=== PATIENT | female | born 1985 | race Caucasian/White ===

== ENCOUNTER 2022-04-22 17:43 | Emergency (ER) | payer BC, SELFPAY ==
--- NOTE | 2022-04-22 17:30 | RT.EKG_ITS ---
APPROVED REPORT Exam: Resting ECG Reason for Exam: chest pain Patient Location: E HR:87 bpm ECG Measurements Heart Rate 87 AXIS MS 144 P 70 QRSd 97 QRS 17 QT 387 T -1 QTc 451 Conclusion Sinus rhythm PVC's No st elevation
[2022-04-22 17:47] VITALS: BP 138/91; PULSE 83; RESP 20; TEMP 36.9; O2SAT 100
--- NOTE | 2022-04-22 18:00 | DI.RAD_ITS ---
Exam(s) XR CHEST 2V PA LATERAL EXAM: XR CHEST 2V PA LATERAL CLINICAL HISTORY: Palpitations TECHNIQUE: 2D digital imaging was performed. COMPARISON: No exams were available for comparison FINDINGS: MEDIASTINUM: Normal. HEART: Normal. PULMONARY VASCULATURE: Normal. LUNGS: Clear. PLEURAL SPACE: No pleural effusion or pneumothorax. BONE:Unremarkable for age. IMPRESSION: No acute abnormality. DATA REPOSITORY: RADIATION DOSE DELIVERED:
--- NOTE | 2022-04-22 18:15 | W.ED.GENAD ---
Discharge Plan Disposition Patient Disposition: HOME Condition: Improving Discharge Details Clinical Impression: Hypokalemia, Palpitations Primary Care Provider: Chaz Nath ED Provider: Saul Isaac Home Meds and New Rx's Prescriptions: Continued cetirizine [Zyrtec] 10 mg Tablet 10 mg PO BID levonorgestrel-ethinyl estrad [Vienva] 0.1-20 mg-mcg Tablet 1 tab PO DAILY omeprazole 20 mg Capsule,Delayed Release(Dr/Ec) 20 mg PO DAILY Discharge Instructions Instructions: Heart Palpitations (ED), Hypokalemia (ED) Additional Instructions: Please return on Sunday to respiratory therapy for placement of a Holter monitor. The respiratory therapy office is at the phone #[phone]. Small, frequent sips of fluids to maintain hydration. Increase potassium containing foods in your diet such as strawberries, bananas, tree nuts like almonds or cashews, or dark leafy greens. Return to the ER for any acute concerns. Discharge Orders Other Ambulatory Orders: Holter Monitor (Routine) Timeframe: 1 Week Facility: [facility] - Location: Respiratory Therapy Ordered By: Saul Isaac Discharge Data Discharge Date/Time-TO BE ENTERED AT DEPARTURE: 04/22/22 19:57 Medical Decision Making 36-year-old female presents from home. She states she had some increased stress and GERD which is common for her, but now has hours of intermittent episodes of palpitations. She feels 1-2 beat extra beats. She has not had any significant chest discomfort, shortness of breath, nor leg pain or swelling. The patient is normotensive and well-appearing. Single PVCs are auscultated during the exam and confirmed on the monitor. Patient IV access established, screening labs obtained. Chest x-ray with no acute cardiopulmonary abnormality. Labs reveal a slightly low potassium of 3.3. Noted creatinine 1.1. TSH, troponin unremarkable. CBC is within normal limits. D-dimer negative at 162. Potassium was supplemented in the emergency department. Patient improved. Consistent with PVCs. We will place her on a Holter monitor for follow-up. She is stable and appropriate for discharge to home at this time. Lab Data Lab results reviewed: Yes I reviewed the patient's lab results. Labs: Laboratory Results - last 24 hr 04/22/22 04/22/22 18:30 18:30 WBC 7.16 RBC 4.90 Hgb 14.4 Hct 40.6 MCV 83 MCH 29.4 MCHC 35.5 RDW 14.5 Plt Count 174 MPV Immature Gran % 0.1 Neutrophils % 52.6 Lymphocytes % 37.4 Monocytes % 8.1 Eosinophils % 1.4 Basophils % 0.4 Nucleated RBC % 0.0 Absolute Neutrophils 3.76 Absolute Lymphocytes 2.68 Absolute Monocytes 0.58 Absolute Eosinophils 0.10 Absolute Basophils 0.03 Sodium 140 Potassium 3.3 L Chloride 104 Carbon Dioxide 24.8 Anion Gap 11.2 H BUN 14 Creatinine 1.1 H Est GFR (CKD-EPI 2020) 66.37 Glucose 128 H Calcium 8.8 Magnesium 1.8 Total Bilirubin 0.4 AST 14 L ALT 17 Alkaline Phosphatase 62 Troponin I < 50 Total Protein 8.0 Albumin 3.8 TSH 1.27 HPI General Mode of arrival: ambulatory. Date/Time Provider Initiated Documentation: 04/22/22 17:44. Limitations to Documentation: no limitations. Information obtained by: patient. History of Present Illness 36 year old F presents to the emergency department with the chief complaint of Palpitations, described as mild and similar to prior episodes, and is localized to the chest. Patient reports no radiation. Patient started experiencing this hour(s) and it has been intermittent. No relieving factors improve symptom(s), No exacerbating factors reported . Patient notes denies cough, diaphoresis, fever/chills, headaches, loss of appetite, shortness of breath, syncope and weakness. Patient did receive the following treatments prior to arrival, none Related Data Home Medications Medication Instructions Recorded Confirmed cetirizine 10 mg tablet (Zyrtec) 10 mg PO BID 04/22/22 04/22/22 levonorgestrel-ethinyl estradiol 1 tab PO DAILY 04/22/22 04/22/22 0.1 mg-20 mcg tablet (Vienva) omeprazole 20 mg capsule,delayed 20 mg PO DAILY 04/22/22 04/22/22 release Allergies Allergy/AdvReac Type Severity Reaction Status Date / Time Penicillins AdvReac Intermediate Hives Unverified 04/22/22 17:51 General Stated Complaint: Chest Pain BENNETT: 2 Review of Systems Narrative: Feels epigastric burning, no chest pressure. Denies diaphoresis or nausea. No shortness of breath. No leg pain or swelling. 7 systems were reviewed and otherwise negative PFSH All Active Problems (Updated 04/22/22 @ 19:45 by Saul Isaac MD) Hypokalemia (Acute) Palpitations (Acute) Social History Smoking/Tobacco Use Status: Never Smoking risk assessment performed?: Yes Alcohol Intake: never Drug use: Occasionally Substance use type: marijuana Do you feel safe at home: Yes Do you feel safe in your relationship?: Yes Exam Narrative Exam Narrative: GEN: awake, alert, oriented 3. Pleasant, well groomed, interactive. HEAD: Normocephalic, atraumatic ENT: Mucous membranes moist, oropharynx unremarkable, External ear exam unremarkable EYES: PERRL, EOMI NECK: Full ROM, no AMELIA, no menigismus CHEST/RESP: Nontender, clear to auscultation bilateral, no wheeze/rhonchi/rales CARDIOVASCULAR: RRR, no murmur, rub gustavo. 2+ Rad pulse bilateral ABDOMEN: Soft, nontender, no mass. +Bowel sounds EXT: Full ROM, no edema, no rash Neuro: Grossly normal neurologic exam, conversant, interactive. Psych: Speech fluent, thoughts congruent, affect normal Course Vital Signs Vital signs: Vital Signs Temperature 36.9 C 04/22/22 17:47 Pulse 83 04/22/22 17:47 Respiratory Rate 20 04/22/22 17:47 Blood Pressure 138/91 H 04/22/22 17:47 Pulse Oximetry 100 04/22/22 17:47 Temperature 36.9 C 04/22/22 17:47 Temperature Source Temporal Artery Scan 04/22/22 17:47 Pulse 83 04/22/22 17:47 Respiratory Rate 20 04/22/22 17:47 Respiratory Effort Non-Labored 04/22/22 17:59 Respiratory Depth Normal 04/22/22 17:59 Respiratory Pattern Normal 04/22/22 17:59 Blood Pressure 138/91 H 04/22/22 17:47 Blood Pressure Position Sitting 04/22/22 17:47 Pulse Oximetry 100 04/22/22 17:47 Oxygen Delivery Method Room Air 04/22/22 17:47 Oxygen Flow Rate 0 04/22/22 17:47 Pain Level 0 04/22/22 17:47
[2022-04-22] MEDS: Normal Saline 1,000 ML 1000 ML IV (18:42)
[2022-04-22 18:55] LABS: Abs Immature Grans 0.01 10^3/uL (0.0-0.06); Absolute Basophil Count 0.03 10^3/uL (0.0-0.2); Absolute Lymphocyte Count 2.68 10^3/uL (1.2-3.4); Absolute Monocyte Count 0.58 10^3/uL (0.1-0.8); Absolute Neutrophil Count 3.76 10^3/uL (1.2-6.7); Basophils % 0.4; Eosinophils % 1.4; HCT 40.6 % (36.0-46.0); HGB 14.4 g/dL (11.2-15.7); Immature Grans % 0.1; Lymphocytes % 37.4; MCH 29.4 pg (27.0-33.0); MCHC 35.5 % (32.0-36.0); MCV 83 fL (80-95); Monocytes % 8.1; Neutrophils % 52.6; Platelet Count 174 10^3/uL (130-400); RDW 14.5 % (11.7-14.6); RDW-SD 43.8 fL; WBC 7.16 10^3/uL (4.4-10.8)
--- NOTE | 2022-04-22 18:55 | DI.VRAD_ITS ---
PROCEDURE INFORMATION: Exam: XR Chest Exam date and time: 04/22/2022 6:45 PM Age: 36 years old Clinical indication: Other: Palpatations TECHNIQUE: Imaging protocol: Radiologic exam of the chest. Views: 2 views. COMPARISON: No relevant prior studies available. FINDINGS: Tubes, catheters and devices: Monitoring wires noted. Lungs: Unremarkable. No consolidation. Lungs are mildly hyperaerated. Pulmonary vessels are not congested. Pleural spaces: Unremarkable. No pleural effusion. No pneumothorax. Heart/Mediastinum: Unremarkable. No cardiomegaly. Bones/joints: Unremarkable. IMPRESSION: No acute cardiopulmonary abnormality. Dictated and Authenticated by: José Beauchamp MD. Ordering:AVERY Hughes MD
[2022-04-22 19:07] LABS: ALT 17 U/L (14-59); AST 14 U/L (15-37); Albumin 3.8 g/dL (3.4-5.0); Alkaline Phosphatase 62 U/L (46-116); Anion Gap 11.2 mmol/L (3-11); BUN 14 mg/dL (7-18); Bilirubin, Total 0.4 mg/dL (0.2-1.0); CO2 24.8 mmol/L (21.0-32.0); CREATININE 1.1 mg/dL (0.55-1.02); Calcium 8.8 mg/dL (8.5-10.1); Chloride 104 mmol/L (98-107); Estimated GFR 66.37 (mL/min/1.73m2); Glucose 128 mg/dL (74-106); Magnesium 1.8 mg/dL (1.8-2.4); Potassium 3.3 mmol/L (3.5-5.1); Sodium 140 mmol/L (136-145); TSH 1.27 uIU/mL (0.36-3.74); Troponin I < 50 ng/L (<or=60)
[2022-04-22 19:35] LABS: D-Dimer 160 ng/mlFEU (<500)
[2022-04-22] MEDS: Potassium Chloride 20 MEQ TABCR PO (19:36)
[2022-04-22 19:55] VITALS: BP 126/79; PULSE 68; RESP 16; O2SAT 98
== END 2022-04-22 19:57 | disposition home or self-care (01) ==
PROVIDERS: Emergency Provider Emergency Medicine; PCP Family Medicine
DX: R00.2 Palpitations (principal); E87.6 Hypokalemia; F43.9 Reaction to severe stress, unspecified; K21.9 Gastro-esophageal reflux disease without esophagitis; I49.3 Ventricular premature depolarization
CPT/HCPCS: 36415; 80053; 93005; 96360; 99284; 71046; 83735; 84443; 84484; 85025; 85379; 93010; 99285

== ENCOUNTER 2022-05-08 03:38 | Outpatient (RCR) | payer BC, SELFPAY ==
--- NOTE | 2022-05-08 11:30 | HOLTER_ITS ---
APPROVED REPORT Conclusion This is a 48-hour Holter monitor Predominant rhythm was sinus with an average heart rate of 69. Minimum was 45, maximum 163 A total of 1 premature ventricular contractions and 3 premature atrial contractions were recorded There is no atrial fibrillation, no high-grade AV block, no supraventricular tachycardia, no pauses g reater than 3 seconds There were no apparent patient symptoms
== END 2022-05-19 23:59 | disposition home or self-care (01) ==
LOC: RT 03:38
PROVIDERS: PCP Family Medicine; Visit Provider Nurse Practitioner Family
DX: R00.2 Palpitations (principal); I49.1 Atrial premature depolarization
CPT/HCPCS: 93225; 93226

== ENCOUNTER → 2022-06-12 02:03 | Outpatient (CLI) | payer BC, SELFPAY ==
--- NOTE | 2022-06-12 12:30 | DI.RAD_ITS ---
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 TECHNIQUE: 2D digital imaging was performed. Four views. COMPARISON: No exams were available for comparison FINDINGS: BONES: No acute fracture is present. No bony destructive lesion is seen. JOINTS: The knee is normally aligned. No joint effusion is seen. SOFT TISSUE: Normal. IMPRESSION: Unremarkable radiographs of the right knee. DATA REPOSITORY: RADIATION DOSE DELIVERED:
== END ==
PROVIDERS: PCP Family Medicine; Visit Provider Nurse Practitioner Family
DX: M25.561 Pain in right knee (principal); M22.2X1 Patellofemoral disorders, right knee
CPT/HCPCS: 73564

== ENCOUNTER 2025-06-19 20:17 | Emergency (ER) | payer OTHER, SELFPAY ==
[2025-06-19] VITALS (16 sets, daily range): BP systolic 131–157; BP diastolic 91–108; PULSE 46–84; RESP 13–24; TEMP 36.6; O2SAT 98–100
--- NOTE | 2025-06-19 20:15 | RT.EKG_ITS ---
APPROVED REPORT Exam: Resting ECG Reason for Exam: Heart Palpatations Patient Location: E HR:61 bpm ECG Measurements Heart Rate 61 AXIS NV 138 P 70 QRSd 96 QRS 18 QT 424 T 32 QTc 427 Conclusion Sinus rhythm...normal P axis, V-rate 60- 99 Probable left atrial enlargement...P >50mS, <-0.10mV V1 No STEMI
--- NOTE | 2025-06-19 20:46 | ED.GENADUL_ITS ---
Discharge Plan Disposition Patient Disposition: Home Condition: Stable Discharge Details Clinical Impression: Palpitations Primary Care Provider: Imtiaz Morgan ED Provider: Ignacio Garcia Home Meds and New Rx's Prescriptions: Continued cetirizine [Zyrtec] 10 mg Tablet 10 mg PO BID levonorgestrel-ethinyl estrad [Vienva] 0.1-20 mg-mcg Tablet 1 tab PO DAILY omeprazole 20 mg Capsule,Delayed Release(Dr/Ec) 20 mg PO DAILY Discharge Instructions Instructions: Palpitations ED Referrals: Imtiaz Morgan MD [Primary Care Provider, Medicine] HPI General Date/Time Provider Initiated Documentation: 06/19/25 20:46 . HPI Narrative: 39 year-old female presents to ED today by POV/ambulating with a chief complaint of PAC's/palpitations, chest pressure with onset over the past 3 days, keeping her up at night. Quality described as palpitations, chest pressure, discomfort, no radiation to recent URI, fever, tick bites, abdominal pain, nausea/vomiting, dizziness, endorses shortness of breath. Severity is described as 4/10. Palliating factors include takes propranolol but is having breakthrough PACs, which has happened in the past with metoprolol. Provoking factors include nothing specific. Events leading up to the incident/Associated Symptoms: Patient followed by [facility] cardiology- wants to know if she should start an anti- arrhythmic. Patient not anticoagulated. Related Data Home Medications Medication Instructions Recorded Confirmed cetirizine 10 mg tablet (Zyrtec) 10 mg PO BID 04/22/22 04/22/22 levonorgestrel-ethinyl estradiol 1 tab PO DAILY 04/22/22 0.1 mg-20 mcg tablet (Vienva) omeprazole 20 mg capsule,delayed 20 mg PO DAILY 04/22/22 release Allergies Allergy/AdvReac Type Severity Reaction Status Date / Time Penicillins AdvReac Intermediate Hives Unverified 04/22/22 17:51 General Stated Complaint: Palpitatns BENNETT: 3 Review of Systems All systems reviewed & are unremarkable except as noted in HPI and below Exam Narrative Exam Narrative: GENERAL APPEARANCE: Well-nourished, non-toxic, awake and alert, atraumatic, no acute distress. SKIN: Warm, pink, dry, intact, without rashes/lesions/ulcerations. HEAD: Normocephalic, atraumatic, normal hair distribution for gender/age. EYES: Normal conjunctiva, no exudates on lids/lashes. ENT: Nares patent, no circumoral cyanosis, no facial swelling NECK: Supple, trachea midline, painless cervical ROM. LUNGS/CHEST: Lungs CTA bilaterally-no rhonchi/rales/wheezes diffusely, non- labored respirations, normal A/P diameter, symmetrical expansion, no chest wall deformity HEART (CV/PV): Regular rate and rhythm without murmur-no irregular rhythm to auscultation but did observe frequent PACs on monitor, no peripheral edema, no JVD. ABDOMEN: Soft, non-distended, no guarding. MSK: Normal ROM, no swelling/deformity to bilateral UEs or LEs, moving all extremities without weakness, no cyanosis, spine midline without tenderness, normal curvature. NEURO: Mental Status AAOx4 - alert to person, place, time, events No facial droop, no forehead involvement. Motor: No focal weakness Sensory: sensation intact to light touch globally. Gait normal: patient ambulated without ataxia into ED room. PSYCH: euthymic, cooperative, pleasant, appropriate speech Course Vital Signs Vital signs: Vital Signs Temperature 36.6 C 06/19/25 20:21 Pulse 56 L 06/19/25 20:21 Respiratory Rate 18 06/19/25 20:21 Blood Pressure 152/100 H 06/19/25 20:21 Pulse Oximetry 99 06/19/25 20:21 Temperature 36.6 C 06/19/25 20:21 Pulse 56 L 06/19/25 20:21 Respiratory Rate 18 06/19/25 20:21 Blood Pressure 152/100 H 06/19/25 20:21 Pulse Oximetry 99 06/19/25 20:21 Pain Level 5 06/19/25 20:21 Medical Decision Making This dictation utilizes [id number] dictation software and may contain unedited grammatical errors. 39 year-old female presents to ED today by POV/ambulating with a chief complaint of PAC's/palpitations, chest pressure with onset over the past 3 days, keeping her up at night. Quality described as palpitations, chest pressure, discomfort, no radiation to recent URI, fever, tick bites, abdominal pain, nausea/vomiting, dizziness, endorses shortness of breath. Severity is described as 4/10. Palliating factors include takes propranolol but is having breakthrough PACs, which has happened in the past with metoprolol. Provoking factors include nothing specific. Events leading up to the incident/Associated Symptoms: Patient followed by [facility] cardiology- wants to know if she should start an anti- arrhythmic. Patients' medical history: Palpitations. Family and social history: Non-smoker, gets regular exercise. Pertinent exam findings / vital signs include rate controlled sinus bradycardia with frequent PACs observed on monitor, no murmur to auscultation, lungs CTA, nontoxic and afebrile. Differential / pathologies of concern include PACs, palpitations, unlikely ACS. Diagnostic studies of: - CBC, CMP, troponin, BNP, lipase, TSH, magnesium, EKG, chest x-ray. - CBC shows no acute actionable abnormality - CMP is unremarkable without any electrolyte derangements - Magnesium within normal limits - Troponin negative with reliable onset - BNP within normal limits - Lipase negative - TSH within normal limits - EKG shows sinus rhythm with P waves followed by narrow complex QRS with normal axis, good R wave progression, no acute ST changes - X-ray chest within normal notes Interventions of: - Paged out [facility] cardiology to get their opinion on antiarrhythmic initiation at 2230. Patient signed out with Cardiology consult pending to Dr. Tena. ED Course; 39-year-old otherwise healthy female with history of palpitations with PACs failing metoprolol has been on propranolol for 1 year is having frequent breakthrough PACs and new hypertension tonight, she endorses some chest pressure and her cardiac workup is negative, paging out [facility] cardiology for question of choice of antiarrhythmic to initiate. Patient signed out to Dr. Tena at shift-change. Findings not consistent with ACS, thyroid disease, electrolyte abnormality, unstable arrhythmia. Disposition of palpitations. Patient verbalized understanding of the plan and return to ED criteria and engaged in shared decision making. Medical Records Medical records reviewed: Yes I reviewed the patient's medical records. Imaging Data Radiologic Study: Attestation: I personally reviewed and interpreted this imaging study as follows: Imaging: X-Ray Radiologist's impression: Exam: XR Chest Exam date and time: 06/19/2025 9:34 PM Age: 39 years old Clinical indication: Pain; Other: Chest pressure TECHNIQUE: Imaging protocol: Radiologic exam of the chest. Views: 2 views. COMPARISON: CR XR CHEST 2V PA LATERAL 04/22/2022 6:45 PM FINDINGS: Lungs: Unremarkable. No consolidation. Pleural spaces: Unremarkable. No pleural effusion. No pneumothorax. Heart/Mediastinum: Unremarkable. No cardiomegaly. Bones/joints: Unremarkable. IMPRESSION: No acute findings. Dictated and Authenticated by: Osiel Laura MD. Lab Data Lab results reviewed: Yes I reviewed the patient's lab results. Labs: Laboratory Tests Range/Units 06/19/25 20:51 WBC (4.4-10.8) 10^3/uL 7.98 RBC (3.93-5.22) 10^6/uL 5.10 Hgb (11.2-15.7) g/dL 15.3 Hct (36.0-46.0) % 45.0 MCV (80-95) fL 88 MCH (27.0-33.0) pg 30.0 MCHC (32.0-36.0) % 34.0 RDW (11.7-14.6) % 12.9 Plt Count (130-400) 10^3/uL 205 MPV (8.0-11.0) fL 13.0 H Immature Gran % % 0.3 Neutrophils % % 41.7 Lymphocytes % % 45.0 Monocytes % % 10.0 Eosinophils % % 2.5 Basophils % % 0.5 Nucleated RBC % (0.0-0.3) % 0.0 Absolute Neutrophils (1.2-6.7) 10^3/uL 3.33 Absolute Lymphocytes (1.2-3.4) 10^3/uL 3.59 H Absolute Monocytes (0.1-0.8) 10^3/uL 0.80 Absolute Eosinophils (0.0-0.7) 10^3/uL 0.20 Absolute Basophils (0.0-0.2) 10^3/uL 0.04 Sodium (136-145) mmol/L 140 Potassium (3.5-5.1) mmol/L 3.7 Chloride (98-107) mmol/L 102 Carbon Dioxide (21.0-32.0) mmol/L 27.1 Anion Gap (3-11) mmol/L 10.9 BUN (7-18) mg/dL 7 Creatinine (0.55-1.02) mg/dL 0.9 Est GFR (CKD-EPI 2020) (mL/min/1.73m2) 82.88 Glucose (74-106) mg/dL 99 Calcium (8.5-10.1) mg/dL 9.7 Magnesium (1.8-2.4) mg/dL 2.0 Total Bilirubin (0.2-1.0) mg/dL 0.4 AST (15-37) U/L 12 L ALT (14-59) U/L 20 Alkaline Phosphatase (46-116) U/L 62 Troponin I (<or=51) ng/L 4 NT-Pro-B Natriuret Pep (<300) pg/mL 76 Total Protein (6.4-8.2) g/dL 8.4 H Albumin (3.4-5.0) g/dL 4.1 Lipase (<78) U/L 45 TSH (0.36-3.74) uIU/mL 3.05 PFSH All Active Problems (Updated 06/19/25 @ 22:45 by PIPER Barbosa) Palpitations (Acute) Social History Smoking/Tobacco Use Status: Never Smoking risk assessment performed?: Yes Alcohol Intake: never Drug use: Occasionally Substance use type: marijuana Do you feel safe at home: Yes Do you feel safe in your relationship?: Yes
[2025-06-19 21:11] LABS: Abs Immature Grans 0.02 10^3/uL (0.0-0.06); HCT 45.0 % (36.0-46.0); HGB 15.3 g/dL (11.2-15.7); Immature Grans % 0.3 %; MCH 30.0 pg (27.0-33.0); MCHC 34.0 % (32.0-36.0); MCV 88 fL (80-95); MPV 13.0 fL (8.0-11.0); Platelet Count 205 10^3/uL (130-400); RBC 5.10 10^6/uL (3.93-5.22); RDW 12.9 % (11.7-14.6); RDW-SD 42.0 fL; WBC 7.98 10^3/uL (4.4-10.8)
[2025-06-19] MEDS: Aspirin 81 MG CHEW 324 MG CH (21:17)
--- NOTE | 2025-06-19 21:31 | DI.RAD_ITS ---
Exam(s) XR CHEST 2V PA LATERAL EXAM: XR CHEST 2V PA LATERAL CLINICAL HISTORY: chest pressure. TECHNIQUE: 2D digital imaging was performed. COMPARISON: CR,XR XR CHEST 2V PA LATERAL from 04/22/2022 FINDINGS: 2 views: Heart size is normal. The mediastinum is not widened. Lungs are clear. No infiltrates nor pleural effusions. IMPRESSION: No acute pulmonary findings. DATA REPOSITORY: RADIATION DOSE DELIVERED:
[2025-06-19 21:36] LABS: ALT 20 U/L (14-59); AST 12 U/L (15-37); Albumin 4.1 g/dL (3.4-5.0); Alkaline Phosphatase 62 U/L (46-116); Anion Gap 10.9 mmol/L (3-11); BUN 7 mg/dL (7-18); Bilirubin, Total 0.4 mg/dL (0.2-1.0); CO2 27.1 mmol/L (21.0-32.0); Calcium 9.7 mg/dL (8.5-10.1); Chloride 102 mmol/L (98-107); Glucose 99 mg/dL (74-106); Lipase 45 U/L (<78); Magnesium 2.0 mg/dL (1.8-2.4); Potassium 3.7 mmol/L (3.5-5.1); Sodium 140 mmol/L (136-145); Total Protein 8.4 g/dL (6.4-8.2); Troponin I 4 ng/L (<or=51)
--- NOTE | 2025-06-19 21:48 | DI.VRAD_ITS ---
PROCEDURE INFORMATION: Exam: XR Chest Exam date and time: 06/19/2025 9:34 PM Age: 39 years old Clinical indication: Pain; Other: Chest pressure TECHNIQUE: Imaging protocol: Radiologic exam of the chest. Views: 2 views. COMPARISON: CR XR CHEST 2V PA LATERAL 04/22/2022 6:45 PM FINDINGS: Lungs: Unremarkable. No consolidation. Pleural spaces: Unremarkable. No pleural effusion. No pneumothorax. Heart/Mediastinum: Unremarkable. No cardiomegaly. Bones/joints: Unremarkable. IMPRESSION: No acute findings. Dictated and Authenticated by: Osiel Laura MD. Orderin Radha Pierre MD
[2025-06-19 21:57] LABS: TSH (W/Ref FT4) 3.05 uIU/mL (0.36-3.74)
--- NOTE | 2025-06-20 00:19 | ED.PROG_ITS ---
Date of service: 06/20/25 Time of Service: 00:19 Medical Decision Making I discussed the case with Dr. Santoyo, from [facility] cardiology. The patient is scheduled for close follow-up with [facility] cardiology on the of this month. The patient is taking propranolol that her has she has noticed previously metoprolol was having a heart rate that was too low and was not being symptomatically treated effectively for the PACs. Cardiology recommended patient to be on 30 mg every 6 hours of oral diltiazem to see if this improves symptoms. They recommended a Zio patch at discharge, but we already unable to place this device tonight secondary to facility challenges. I reach back out to the [facility] cardiology, who recommended that the patient returns to the clinic if she has the appointment upcoming to Zio patch placement prior to the appointment. I discussed these recommendations with the patient. She was given oral diltiazem here in the emergency room as a bridge to follow-up with cardiology. Discharge Plan Disposition Patient Disposition: Home Condition: Stable Discharge Details Clinical Impression: Palpitations Primary Care Provider: Imtiaz Morgan ED Provider: Silviano Tena Home Meds and New Rx's Prescriptions: New diltiazem HCl [Cardizem] 30 mg tablet 30 mg PO QID Qty: 120 0RF Continued cetirizine [Zyrtec] 10 mg Tablet 10 mg PO BID levonorgestrel-ethinyl estrad [Vienva] 0.1-20 mg-mcg Tablet 1 tab PO DAILY omeprazole 20 mg Capsule,Delayed Release(Dr/Ec) 20 mg PO DAILY Discharge Instructions Instructions: Palpitations ED Additional Instructions: Take 1 diltiazem tablet every 6 hours, to help better control your premature atrial contractions. This medication is meant to be a replacement for the oral propranolol, and not in combination with it. Continue to follow-up with your planned outpatient cardiology appointment. Contact that cardiology office to discuss the recommendation for Zio patch placement prior to your follow-up appointment. You can always return to the ER for any new concerns or sudden changes in your health that you feel require emergency medical attention. Referrals: Imtiaz Morgan MD [Primary Care Provider, Medicine] Discharge Data Discharge Physician: Silviano Tena
[2025-06-20] MEDS: dilTIAZem 30 MG TAB PO (01:10)
[2025-06-20 01:16] VITALS: BP 121/73; PULSE 62; RESP 16; TEMP 36.8; O2SAT 100
[2025-06-22 09:58] LABS: Lyme Ab w Rflx to Lyme Confirm Negative (Negative)
[2025-06-23 16:29] LABS: B. miyamotoi PCR Negative (Negative); Babesia divergens/MO-1 Negative (Negative); Ehrlichia muris eauclairensis Negative (Negative)
== END 2025-06-20 01:17 | disposition home or self-care (01) ==
PROVIDERS: Physician Assistant; Emergency Provider Emergency Medicine Emergency Medical Services; PCP Student in an Organized Health Care Education/Training Program
DX: R00.2 Palpitations (principal); R07.89 Other chest pain
CPT/HCPCS: 99284 ×2; 36415; 00123; 80053; 83690; 87798; 93005; 71046; 83735; 83880; 84443; 84484; 85025; 86618; 93010